=== PATIENT | female | born 1955 | race Caucasian/White ===

== ENCOUNTER → 2016-09-25 | Outpatient (CLI) | payer BC ==
--- NOTE | 2016-09-25 17:17 | KCIC ---
Targeted ultrasound of the right foot HISTORY: Palpable lump at the plantar aspect of the right foot FINDINGS: Scanning is performed in the area of the palpable lump. A small hypoechoic nodule is identified in this area, measuring 8 mm x 7 mm x 3 mm. No significant vascularity is associated with this nodule. IMPRESSION: Small hypoechoic nodule at the area of concern, nonspecific but without worrisome features. 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 Chronic granulomatous reaction from foreign body could also be considered. Electronically signed by: Mauricio العلي MD (09/25/2016 5:14 PM)
== END | disposition home or self-care (01) ==
LOC: KCIC US 14:54
PROVIDERS: ATTEND Podiatrist Foot & Ankle Surgery
DX: N63 Unspecified lump in breast (principal)
CPT/HCPCS: 76881

== ENCOUNTER → 2019-02-03 | Outpatient (CLI) | payer MEDICARE ==
--- NOTE | 2019-02-03 09:29 | KCIC ---
ABDOMEN COMPLETE History: Elevated liver function tests Comparison: None. Findings: Multiple sonographic images of the abdomen are submitted. There is diffuse coarsening of the hepatic echotexture. Right lobe of the liver measured about 21.3 cm longitudinal. Common bile duct is within normal limits about 0.3 cm. There is no abnormality of the visualized pancreas. There has been cholecystectomy. Right kidney measured 10.2 x 4.2 x 3.9 cm, no hydronephrosis. Left kidney measured 10.9 x 4.7 x 4.5 cm. There is focus of hypoechogenicity of the mid to inferior left renal pelvis about 3.5 x 1.9 x 2.3 cm, most likely a cyst rather than pelviectasis. Spleen measured 12 cm. Abdominal aortic caliber is within normal limits about 2 cm. There is segmental visualization of the inferior vena cava. Impression: 1. There is diffuse hepatic steatosis. There is hepatomegaly. 2. Hypoechoic lesion of the mid to inferior left renal pelvis is favored to be a cyst rather than pelviectasis. Electronically signed by: Matthew Thompson MD (02/03/2019 9:26 AM) [email or web address]
== END | disposition home or self-care (01) ==
LOC: KCIC US 07:50
PROVIDERS: ATTEND Internal Medicine Gastroenterology
DX: K76.0 Fatty (change of) liver, not elsewhere classified (principal); N28.89 Other specified disorders of kidney and ureter; Z90.49 Acquired absence of other specified parts of digestive tract
CPT/HCPCS: 76700